=== PATIENT | male | born 1990 | race Caucasian/White ===

== ENCOUNTER 2019-07-07 07:10 | Day surgery (SDC) | payer OTHER ==
[2019-07-07] MEDS ORDERED: CEFAZOLIN 2 GM/50 ML (PMX) 50 ML IVPB (09:00)
[2019-07-07] MEDS ORDERED: SOD CHLORIDE 0.9% 1,000 ML IV (09:00)
[2019-07-07] MEDS ORDERED: CEFAZOLIN 1 GM INJ (11:24)
[2019-07-07] MEDS ORDERED: PROPOFOL 20 ML (11:24)
[2019-07-07] MEDS ORDERED: MIDAZOLAM 1 MG/ML 2 ML INJ (11:24)
[2019-07-07] MEDS ORDERED: ROCURONIUM 50 MG INJ (11:24)
[2019-07-07] MEDS ORDERED: ROPIVACAINE 0.5 % 30 ML VIAL (11:25)
[2019-07-07] MEDS ORDERED: ONDANSETRON 4 MG INJ (11:25)
[2019-07-07] MEDS ORDERED: METOCLOPRAMIDE 10 MG INJ (11:25)
[2019-07-07] MEDS ORDERED: KETOROLAC 30 MG INJ (11:29)
[2019-07-07] MEDS ORDERED: MEPERIDINE 25 MG INJ IV (11:30)
[2019-07-07] MEDS ORDERED: OXYCODONE/ACETAMINOPHEN (5/325) TAB PO ×2 (11:30)
[2019-07-07] MEDS ORDERED: FENTAnyl 50 MCG/ML VIAL IV ×3 (11:30)
[2019-07-07] MEDS ORDERED: ONDANSETRON 4 MG INJ IV ×2 (11:30→13:00)
[2019-07-07] MEDS ORDERED: HYDROmorphONE 1 MG/5 ML IV SYRINGE IV ×3 (11:30)
[2019-07-07] MEDS ORDERED: DIPHENHYDRAMINE 50 MG INJ IV (11:30)
[2019-07-07] MEDS ORDERED: GLYCOPYRROLATE 0.4 MG INJ (12:36)
[2019-07-07] MEDS ORDERED: HYDROmorphONE 2 MG/ML SYG (12:36)
[2019-07-07] MEDS ORDERED: NEOSTIGMINE 3 MG/3 ML SYRINGE (12:36)
[2019-07-07] MEDS ORDERED: morphine 2 MG INJ IV (13:00)
[2019-07-07] MEDS ORDERED: ACETAMINOPHEN 1000MG/100ML IV 100 ML IVPB (13:00)
[2019-07-07] MEDS: D5W-0.45 NACL + KCL 20 MEQ 1,000 ML IV ×2 (15:21→20:48)
[2019-07-07] MEDS: HYDROCODONE/APAP (5/325) TAB PO (20:40)
[2019-07-08] MEDS: D5W-0.45 NACL + KCL 20 MEQ 1,000 ML IV ×3 (00:51→17:07)
[2019-07-08 04:57] LABS: ADD MAN DIFF? NO
[2019-07-08 04:59] LABS: WHITE BLOOD COUNT 8.3 10^3/ul (4.8-10.8)
[2019-07-08 04:59] LABS: BASOPHILS % 0.1 % (0.0-2.0); EOSINOPHILS % 0.5 % (0.0-7.0); HEMATOCRIT 40.2 % (42.0-52.0); HEMOGLOBIN 13.6 g/dl (14.0-18.0); LYMPHOCYTES % 24.3 % (15.0-51.0); MEAN CORPUSCULAR HEMOGLOBIN 30.3 pg (29.0-33.0); MEAN CORPUSCULAR HGB CONC 33.8 g/dl (32.0-37.0); MEAN CORPUSCULAR VOLUME 89.5 fl (82.0-101.0); MEAN PLATELET VOLUME 8.5 fl (7.4-10.4); MONOCYTE # 0.8 10^3/ul (0.3-0.9); MONOCYTES % 9.8 % (0.0-11.0); NEUTROPHIL # 5.4 10^3/ul (1.6-7.5); NEUTROPHILS % 64.9 % (39.0-77.0); PLATELET COUNT 280 10^3/UL (140-415); RED BLOOD COUNT 4.49 10^6/ul (4.70-6.10); RED CELL DISTRIBUTION WIDTH 12.4 % (11.5-14.5)
[2019-07-08 05:31] LABS: ALANINE AMINOTRANSFERASE 106 IU/L (13-69); ALBUMIN 3.9 g/dl (3.3-4.9); ALBUMIN/GLOBULIN RATIO 1.18; ALKALINE PHOSPHATASE 42 IU/L (42-121); ANION GAP 8 (5-13); ASPARTATE AMINO TRANSFERASE 62 IU/L (15-46); BILIRUBIN,INDIRECT 1.3 mg/dl (0-1.1); BILIRUBIN,TOTAL 1.3 mg/dl (0.2-1.3); BLOOD UREA NITROGEN 6 mg/dl (7-20); CALCIUM 9.2 mg/dl (8.4-10.2); CARBON DIOXIDE 29 mmol/L (21-31); CHLORIDE 107 mmol/L (97-110); CREATININE 0.87 mg/dl (0.61-1.24); Estimated GFR > 60 mL/min (>60); GLUCOSE 122 mg/dl (70-220); POTASSIUM 4.7 mmol/L (3.5-5.1); SODIUM 144 mmol/L (135-144); TOTAL PROTEIN 7.2 g/dl (6.1-8.1)
[2019-07-08] MEDS: HYDROCODONE/APAP (5/325) TAB PO ×3 (06:36→22:19)
[2019-07-08 08:33] LABS: HEMOGLOBIN A1C 4.6 % (0-5.9)
[2019-07-08 14:53] LABS: ALANINE AMINOTRANSFERASE 124 IU/L (13-69); ALBUMIN 4.1 g/dl (3.3-4.9); ALBUMIN/GLOBULIN RATIO 1.32; ALKALINE PHOSPHATASE 38 IU/L (42-121); ANION GAP 6 (5-13); ASPARTATE AMINO TRANSFERASE 70 IU/L (15-46); BLOOD UREA NITROGEN 4 mg/dl (7-20); CARBON DIOXIDE 29 mmol/L (21-31); CHLORIDE 106 mmol/L (97-110); CREATININE 0.82 mg/dl (0.61-1.24); Estimated GFR > 60 mL/min (>60); GLUCOSE 120 mg/dl (70-220); LIPASE 14 U/L (23-300); POTASSIUM 3.9 mmol/L (3.5-5.1); SODIUM 141 mmol/L (135-144); TOTAL PROTEIN 7.2 g/dl (6.1-8.1)
[2019-07-09] MEDS: D5W-0.45 NACL + KCL 20 MEQ 1,000 ML IV ×2 (00:39→10:05)
[2019-07-09 05:00] LABS: ADD MAN DIFF? NO
[2019-07-09 05:09] LABS: WHITE BLOOD COUNT 8.1 10^3/ul (4.8-10.8)
[2019-07-09 05:09] LABS: BASOPHILS % 0.2 % (0.0-2.0); EOSINOPHILS # 0.1 10^3/ul (0.0-0.5); EOSINOPHILS % 1.5 % (0.0-7.0); HEMOGLOBIN 13.7 g/dl (14.0-18.0); LYMPHOCYTES # 2.4 10^3/ul (0.8-2.9); LYMPHOCYTES % 29.2 % (15.0-51.0); MEAN CORPUSCULAR HEMOGLOBIN 30.1 pg (29.0-33.0); MEAN CORPUSCULAR HGB CONC 33.4 g/dl (32.0-37.0); MEAN CORPUSCULAR VOLUME 90.1 fl (82.0-101.0); MEAN PLATELET VOLUME 8.6 fl (7.4-10.4); MONOCYTE # 0.9 10^3/ul (0.3-0.9); MONOCYTES % 10.9 % (0.0-11.0); NEUTROPHIL # 4.7 10^3/ul (1.6-7.5); PLATELET COUNT 269 10^3/UL (140-415); RED BLOOD COUNT 4.55 10^6/ul (4.70-6.10); RED CELL DISTRIBUTION WIDTH 12.7 % (11.5-14.5)
[2019-07-09 11:57] LABS: ALANINE AMINOTRANSFERASE 135 IU/L (13-69); ALBUMIN 4.5 g/dl (3.3-4.9); ALKALINE PHOSPHATASE 51 IU/L (42-121); ANION GAP 8 (5-13); ASPARTATE AMINO TRANSFERASE 66 IU/L (15-46); BILIRUBIN,INDIRECT 1.1 mg/dl (0-1.1); BILIRUBIN,TOTAL 1.1 mg/dl (0.2-1.3); BLOOD UREA NITROGEN 6 mg/dl (7-20); CALCIUM 9.9 mg/dl (8.4-10.2); CARBON DIOXIDE 30 mmol/L (21-31); CHLORIDE 102 mmol/L (97-110); CREATININE 0.82 mg/dl (0.61-1.24); Estimated GFR > 60 mL/min (>60); GLUCOSE 113 mg/dl (70-220); POTASSIUM 4.7 mmol/L (3.5-5.1); SODIUM 140 mmol/L (135-144)
[2019-07-14] MEDS ORDERED: CEFAZOLIN 2 GM/50 ML (PMX) 50 ML IVPB (09:00)
[2019-07-14] MEDS ORDERED: SOD CHLORIDE 0.9% 1,000 ML IV (10:30)
== END 2019-07-09 14:42 | disposition home or self-care (01) ==
LOC: SDS 07:10 → REC 13:56 → SDS 07-09 14:42 → REC 12:48 → MS1 12:55
DX: K80.10 Calculus of gallbladder with chronic cholecystitis without obstruction (principal)
CPT/HCPCS: 47562; 80048; 80053; 80076; 83036; 83690; 84443; 85025; 88304